=== PATIENT | male | born 1935 | race Caucasian/White ===

== ENCOUNTER → 2023-12-10 05:00 | Outpatient (REF) | payer MEDICARE, SELFPAY ==
[2023-12-10 09:33] LABS: Absolute Lymphocyte Count 1.54 X10^3/uL (0.83-4.51); Absolute Neutrophil Count 4.9 X10^3/uL (2.0-7.7); Basophil% 1.3 % (0-1); Eosinophil# 0.31 X10^3/uL; Eosinophils% 4.2 % (0-5); Hematocrit 29.2 % (40-54); Hemoglobin 8.4 g/dL (13.0-16.5); Lymphocyte # 1.54 X10^3/ul (0.83-4.51); Lymphocyte % 20.7 % (19-41); Mean Corp Hgb Conc 28.8 g/dL (32-36); Mean Corpuscular Hgb 23.3 pg (27.0-32.0); Mean Corpuscular Volume 81.1 fL (80-94); Mean Platelet Vol. 10.5 fl (6.2-12.0); Monocyte# 0.62 X10^3/uL; Monocyte% 8.3 % (0-10); NRBC Flagged by Analyzer 0 % (0-5); Neutrophil # 4.85 X10^3/uL (2.7-7.7); Neutrophil % 65.1 % (47-70); POSITIVE MORPHOLOGY YES; Platelet Count 284 K/mm3 (150-450); RBC Distribution Width CV 22.9 % (11.6-14.6); RBC Distribution Width SD 66.7 fl (35.1-43.9); White Blood Count 7.5 K/mm3 (4.4-11.0)
[2023-12-10 09:34] LABS: Differential Indicated SCAN CRITERIA MET
[2023-12-10 10:18] LABS: Anion Gap 6 (5-15); BUN 13 mg/dL (7-18); BUN/Creat Ratio 9.1 RATIO (10-20); Calcium,Total 8.8 mg/dL (8.5-10.1); Chloride 108 mmol/L (98-107); Creatinine, Serum 1.43 mg/dL (0.70-1.30); EST Glomerular Filtration Rate 50 mL/min (>60); Est Glom Filt Rate - Afr Amer 60 mL/min (>60); Glucose 142 mg/dL (74-106); Potassium 3.8 mmol/L (3.5-5.1); Sodium Level 140 mmol/L (136-145)
[2023-12-10 12:09] LABS: Differential Comment SCANNED
[2023-12-10 12:18] LABS: Ovalocyte 1+; Schistocytes 1+
[2023-12-10 12:19] LABS: Acanthocytes 1+; Anisocytosis 2+; Tear Drop Cell 1+
[2023-12-10 12:20] LABS: Microcytosis 1+
== END ==
LOC: OLS.ACH 05:00
PROVIDERS: Visit Provider Internal Medicine
DX: D64.9 Anemia, unspecified (principal); A41.81 Sepsis due to Enterococcus
CPT/HCPCS: 36415; 80048; 85025